=== PATIENT | male | born 1940 | race Caucasian/White ===

== ENCOUNTER 2019-03-22 08:37 | Day surgery (SDC) | payer MEDICARE ==
[~2019-03-22] VITALS: Ht 185.4 cm; Wt 27.1 kg
[~2019-03-22 08:37] MED LIST: AMLO5 PO; ASPI81EC PO; ATEN100 PO; ATEN50 PO; HYDCHL25 PO; LISI20 PO; LOVA40 PO
[2019-03-22] MEDS ORDERED: Toprol Xl50 MG PO (09:14)
[2019-03-22] MEDS ORDERED: ZESTRIL40 MG PO (09:16)
--- NOTE | 2019-03-22 13:32 | NUR ---
03/22/19 1332 Enedina Urrutia AT 1240 REPORT [email or web address]
== END 2019-03-22 13:45 | disposition home or self-care (01) ==
LOC: ORSCSDS 08:37
PROVIDERS: Orthopaedic Surgery
PROC: 0RQS0ZZ Repair Right Carpometacarpal Joint, Open Approach (ICD-10-PCS; principal; 2019-03-22 10:15)
PROC: 0LX50ZZ Transfer Right Lower Arm and Wrist Tendon, Open Approach (ICD-10-PCS; principal; 2019-03-22 10:15)
DX: M18.11 Unilateral primary osteoarthritis of first carpometacarpal joint, right hand (principal); I10 Essential (primary) hypertension; Z79.899 Other long term (current) drug therapy
CPT/HCPCS: J0461; J0690; J1100; J2405; J2704; J3010

== ENCOUNTER 2020-12-05 08:26 | Emergency (ER) | payer MEDICARE ==
[~2020-12-05] VITALS: Ht 185.4 cm; Wt 93.0 kg
[~2020-12-05 08:26] MED LIST changes: +Toprol Xl50 MG PO; +ZESTRIL40 MG PO
[2020-12-05] MEDS ORDERED: MULTI-VITAMIN1 EAC2 PO (08:42)
[2020-12-05] MEDS ORDERED: OYSTER SHELL 51 EACH PO (08:43)
== END 2020-12-05 11:53 | disposition home or self-care (01) ==
LOC: ER 08:26
DX: H53.2 Diplopia (principal); E78.5 Hyperlipidemia, unspecified; I10 Essential (primary) hypertension; Z79.899 Other long term (current) drug therapy
CPT/HCPCS: 70450; 99284-25

== ENCOUNTER → 2021-09-18 | Outpatient (CLI) | payer MEDICARE ==
[~2021-09-18] MED LIST changes: +MULTI-VITAMIN1 EAC2 PO; +OYSTER SHELL 51 EACH PO
== END | disposition home or self-care (01) ==
LOC: LAB 11:31 → LAB SHORT 11:31
DX: R73.03 Prediabetes (principal)
CPT/HCPCS: 36415; 83036

== ENCOUNTER 2023-06-16 09:32 | Day surgery (SDC) | payer MEDICARE ==
[~2023-06-16] VITALS: Ht 185.4 cm; Wt 93.0 kg
[2023-06-16] VITALS (24 sets, daily range): BP systolic 118–158; BP diastolic 69–97
[~2023-06-16 09:32] MED LIST changes: +LOSA50 PO
--- NOTE | 2023-06-16 11:51 | NUR ---
06/16/23 1151 Allie Momin HISTORY, CHART, MEDICATIONS AND ALLERGIES REVIEWED BEFORE START OF PROCEDURE. PATIENT CONFIRMS NPO STATUS AND AGREES WITH SCHEDULED PROCEDURE. 3-LEAD EKG REVIEWED WITH PHYSICIAN PRIOR TO START OF PROCEDURE. MONITOR INTACT WITH CONTINUOUS PULSE OXIMETRY,CAPNOGRAPHY, 3-LEAD EKG, INTERMITTENT BP. SUPPLEMENTAL O2 TO BE TITRATED THROUGHOUT PROCEDURE TO MAINTAIN O2 SATURATION ABOVE 90%. PATIENT DETERMINED TO BE ASA APPROPRIATE FOR PROPOFOL SEDATION PRIOR TO START OF PROCEDURE BY DR. RAMIREZ. MALLAMPATI CLASS 3 AIRWAY: VISUALIZATION OF ONLY THE BASE OF THE UVULA.
--- NOTE | 2023-06-16 13:21 | NUR ---
Patient up to Ambulate independently. Gait steady. Discharge instructions reviewed with patient. Patient verbalizes understanding. Copy given to patient to take home, WELL . Patient States Post-Procedure ride home has been arranged. Discharged via wheelchair to private car for ride home.
== END 2023-06-16 13:21 | disposition home or self-care (01) ==
LOC: ORSCMMR 09:32 → ORD 10:30 → ORSCMMR 13:21
PROVIDERS: Internal Medicine Gastroenterology
PROC: 0DBM8ZX Excision of Descending Colon, Via Natural or Artificial Opening Endoscopic, Diagnostic (ICD-10-PCS; principal; 2023-06-16 10:30)
PROC: 0DBP8ZX Excision of Rectum, Via Natural or Artificial Opening Endoscopic, Diagnostic (ICD-10-PCS; principal; 2023-06-16 10:30)
PROC: 0DBL8ZX Excision of Transverse Colon, Via Natural or Artificial Opening Endoscopic, Diagnostic (ICD-10-PCS; principal; 2023-06-16 10:30)
PROC: 0DBN8ZX Excision of Sigmoid Colon, Via Natural or Artificial Opening Endoscopic, Diagnostic (ICD-10-PCS; principal; 2023-06-16 10:30)
DX: Z12.11 Encounter for screening for malignant neoplasm of colon (principal); Z86.010 Personal history of colon polyps; D12.3 Benign neoplasm of transverse colon; D12.4 Benign neoplasm of descending colon; D12.5 Benign neoplasm of sigmoid colon; K63.5 Polyp of colon; Z85.038 Personal history of other malignant neoplasm of large intestine; Z85.46 Personal history of malignant neoplasm of prostate; I10 Essential (primary) hypertension; E78.00 Pure hypercholesterolemia, unspecified; G51.0 Bell's palsy; Z79.899 Other long term (current) drug therapy
CPT/HCPCS: 88305; J2704; J7120

== ENCOUNTER 2024-02-24 09:11 | Day surgery (SDC) | payer MEDICARE ==
[~2024-02-24] VITALS: Ht 185.4 cm; Wt 96.7 kg
[~2024-02-24 09:11] MED LIST changes: +Balanced Salt Epinephrine Irrigation Solution 500 mL IR SCH; +Lidocaine HCl/Pf 1% 5 ML VIAL XX SCH; +Moxifloxacin HCL 0.5 MG/0.1 ML 0.4MLSYR RIGHTEYE SCH; +NS 500 ML IV ONE; +PHENYLEPHRINE\\TROPICAMIDE\\TETRACAINE OPHTHALMIC DILATING SOLN RIGHTEYE PRN; +Povidone-Iodine 450 DROP/30 ML Solution RIGHTEYE SCH
[2024-02-24] MEDS ORDERED: Aspir 8181 MG (09:24)
[2024-02-24] MEDS ORDERED: NS 1,000 ML IV ONE (09:27)
[2024-02-24] MEDS ORDERED: FentaNYL Citrate 50 MCG/ML 2 ML Injection ONE (09:43)
[2024-02-24] MEDS ORDERED: Tetracaine HCl 0.5% Opth Soln 15 ml RIGHTEYE ONE (10:10)
[2024-02-24 10:36] VITALS: BP 169/92
== END 2024-02-24 10:49 | disposition home or self-care (01) ==
LOC: ORSCSDS 09:11
PROVIDERS: Student in an Organized Health Care Education/Training Program
PROC: 08RJ3JZ Replacement of Right Lens with Synthetic Substitute, Percutaneous Approach (ICD-10-PCS; principal; 2024-02-24 10:30)
DX: H25.813 Combined forms of age-related cataract, bilateral (principal); I10 Essential (primary) hypertension; Z79.82 Long term (current) use of aspirin; Z79.899 Other long term (current) drug therapy
CPT/HCPCS: J3010; J7040; V2632

== ENCOUNTER 2024-03-02 13:09 | Day surgery (SDC) | payer MEDICARE ==
[~2024-03-02] VITALS: Ht 185.4 cm; Wt 96.3 kg
[~2024-03-02 13:09] MED LIST changes: +Aspir 8181 MG; +Moxifloxacin HCL 0.5 MG/0.1 ML 0.4MLSYR LEFTEYE SCH; -Moxifloxacin HCL 0.5 MG/0.1 ML 0.4MLSYR RIGHTEYE SCH; +PHENYLEPHRINE\\TROPICAMIDE\\TETRACAINE OPHTHALMIC DILATING SOLN LEFTEYE PRN; -PHENYLEPHRINE\\TROPICAMIDE\\TETRACAINE OPHTHALMIC DILATING SOLN RIGHTEYE PRN; +Povidone-Iodine 450 DROP/30 ML Solution LEFTEYE SCH; -Povidone-Iodine 450 DROP/30 ML Solution RIGHTEYE SCH
[2024-03-02] MEDS ORDERED: Midazolam HCl 1MG / ML 2ML Vial ONE (13:43)
[2024-03-02] MEDS ORDERED: NS 500 ML IV ONE (13:43)
[2024-03-02] MEDS ORDERED: FentaNYL Citrate 50 MCG/ML 2 ML Injection ONE (13:43)
[2024-03-02] MEDS ORDERED: Tetracaine HCl 0.5% Opth Soln 15 ml LEFTEYE ONE (13:48)
[2024-03-02] MEDS ORDERED: Erythromycin 0.5% Opth Oint 1 gm ONE (14:10)
[2024-03-02 14:21] VITALS: BP 146/93
== END 2024-03-02 14:41 | disposition home or self-care (01) ==
LOC: ORSCSDS 13:09
PROVIDERS: Student in an Organized Health Care Education/Training Program
PROC: 08BRXZX Excision of Left Lower Eyelid, External Approach, Diagnostic (ICD-10-PCS; principal; 2024-03-02 14:30)
PROC: 08RK3JZ Replacement of Left Lens with Synthetic Substitute, Percutaneous Approach (ICD-10-PCS; principal; 2024-03-02 14:30)
DX: H25.812 Combined forms of age-related cataract, left eye (principal); Z96.1 Presence of intraocular lens; L82.1 Other seborrheic keratosis; Z79.899 Other long term (current) drug therapy; Z79.82 Long term (current) use of aspirin
CPT/HCPCS: 88305; A9270; J2250; J3010; J7040; V2632

== ENCOUNTER 2024-03-31 09:52 | Emergency (ER) | payer MEDICARE ==
[~2024-03-31] VITALS: Ht 185.4 cm; Wt 95.2 kg
[~2024-03-31 09:52] MED LIST changes: -Aspir 8181 MG; +Aspir 8181 MG PO; -Balanced Salt Epinephrine Irrigation Solution 500 mL IR SCH; -Lidocaine HCl/Pf 1% 5 ML VIAL XX SCH; -Moxifloxacin HCL 0.5 MG/0.1 ML 0.4MLSYR LEFTEYE SCH; -NS 500 ML IV ONE; -PHENYLEPHRINE\\TROPICAMIDE\\TETRACAINE OPHTHALMIC DILATING SOLN LEFTEYE PRN; -Povidone-Iodine 450 DROP/30 ML Solution LEFTEYE SCH
[2024-03-31 10:09] VITALS: BP 154/62
[2024-03-31 10:25] LABS: Hematocrit 50.7 % (37.0-53.0); Hemoglobin 16.9 g/dL (13.5-17.5); Mean Corpuscular HGB 31.6 pg (26.0-34.0); Mean Corpuscular HGB Conc 33.3 g/dL (31.5-36.5); Mean Corpuscular Volume 95 fL (80-100); Mean Platelet Volume 11.5 fL (9.1-12.4); Platelet Count 154 K/mm3 (150-400); RDW Coefficient Variation 12.3 % (11.7-14.2); RDW Standard Deviation 42.5 fL (35.1-46.3); Red Blood Cell Count 5.35 M/mm3 (4.30-5.90); White Blood Cell Count 13.01 K/mm3 (4.00-11.30)
[2024-03-31 10:43] LABS: Albumin, Blood 3.9 g/dL (3.4-5.0); Bilirubin, Total 0.8 mg/dL (0.1-1.0); Bun/Creatinine Ratio 13.2 (12.0-20.0); Calcium, Blood 8.9 mg/dL (8.5-10.1); Creatinine, Blood 0.91 mg/dL (0.60-1.20); Globulin, Blood 3.8 g/dL (2.2-4.0); Total Protein, Blood 7.7 g/dL (6.4-8.2)
[2024-03-31 11:08] LABS: BASOPHILS PERCENT MAN 0 % (0-2); EOSINOPHILS ABSOLUTE MAN 0.65 K/mm3 (0.00-0.68); EOSINOPHILS PERCENT MAN 5 % (0-6); LYMPHOCYTES ABSOLUTE MAN 6.37 K/mm3 (0.84-5.20); LYMPHOCYTES PERCENT MAN 49 % (21-46); MONOCYTES ABSOLUTE MAN 0.65 K/mm3 (0.16-1.47); MONOCYTES PERCENT MAN 5 % (4-13); NEUTROPHILS ABSOLUTE MAN 5.33 K/mm3 (1.96-9.15); SEG NEUTROPHILS PERCENT MAN 41 % (41-73); TOTAL CELLS COUNTED 100
[2024-04-01] MEDS ORDERED: LOVA40 PO (08:44)
== END 2024-03-31 12:25 | disposition home or self-care (01) ==
LOC: ER 09:52
PROVIDERS: Emergency Medicine
DX: R55 Syncope and collapse (principal); I10 Essential (primary) hypertension; E78.5 Hyperlipidemia, unspecified; Z79.82 Long term (current) use of aspirin; Z79.899 Other long term (current) drug therapy
CPT/HCPCS: 80053; 84484; 85025; 93005; 93010; 93242; 99284-25

== ENCOUNTER 2024-03-31 12:56 | Inpatient (IN) | payer MEDICARE ==
[~2024-03-31] VITALS: Ht 188 cm; Wt 115.7 kg
[2024-03-31] MEDS ORDERED: Ondansetron 4 MG TAB PO PRN (14:45)
[2024-03-31 17:38] VITALS: BP 158/90
[2024-03-31 19:59] VITALS: BP 156/77
--- NOTE | 2024-03-31 20:11 | NUR ---
PT ADMITTED TO ROOM 326 AT 1730, WHEELCHAIR, AMBULATES STEADY ON FEET, DENIES ANY DIZZINESS. SET UP ON TELE, SB 62, NO ECTOPY. PT DENIES ANY DIZZINESS SINCE ADMIT. VSS WILL TANNA
--- NOTE | 2024-03-31 20:16 | NUR ---
SUMMARY- PT A/O X4. HAS DENIED ANY DIZZINESS SINCE ADMIT TO HOSPITAL. TELE SB 62. 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 PT DENIED ANY SYMPTOMS. DR BELLA HERE TO KATTY PT AROUND 1900 AND MADE AWARE OF THIS RUN AND GIVEN THE PRINT OUT. PT TOLERATING FOOD AND FLUIDS. INSTRUCTED TO CALL FOR HELP GETTING UP FOR AMBUTATION OR IF EXPERIENCING DIZZINESS. REPORTED TO GANGA RIVAS RN
[2024-03-31] MEDS ORDERED: HydrALAZINE HCl 20 MG / ML 1ML Vial IV PRN (20:25)
[2024-03-31 23:48] VITALS: BP 138/83
[2024-04-01 02:48] VITALS: BP 141/76
[2024-04-01 05:03] LABS: BASOPHILS ABSOLUTE AUTO 0.03 K/mm3 (0.00-0.23); BASOPHILS PERCENT AUTO 0 % (0-2); EOSINOPHILS ABSOLUTE AUTO 0.37 K/mm3 (0.00-0.68); EOSINOPHILS PERCENT AUTO 3 % (0-6); Hematocrit 43.8 % (37.0-53.0); Hemoglobin 14.8 g/dL (13.5-17.5); Mean Corpuscular HGB 31.6 pg (26.0-34.0); Mean Corpuscular HGB Conc 33.8 g/dL (31.5-36.5); Mean Corpuscular Volume 93 fL (80-100); Mean Platelet Volume 11.6 fL (9.1-12.4); Platelet Count 134 K/mm3 (150-400); RDW Coefficient Variation 12.1 % (11.7-14.2); RDW Standard Deviation 41.5 fL (35.1-46.3); Red Blood Cell Count 4.69 M/mm3 (4.30-5.90); White Blood Cell Count 11.32 K/mm3 (4.00-11.30)
[2024-04-01 05:18] LABS: IMMATURE GRAN ABSOLUTE AUTO 0.04 K/mm3 (0.00-0.10); IMMATURE GRAN PERCENT AUTO 0 % (0-1); LYMPHOCYTES PERCENT AUTO 35 % (21-46); MONOCYTES ABSOLUTE AUTO 0.94 K/mm3 (0.16-1.47); MONOCYTES PERCENT AUTO 8 % (4-13); NEUTROPHILS ABSOLUTE AUTO 5.94 K/mm3 (1.96-9.15); NEUTROPHILS PERCENT AUTO 52 % (41-73)
[2024-04-01 05:56] LABS: Albumin, Blood 3.4 g/dL (3.4-5.0); Albumin/Globulin Ratio 1.1 (0.8-1.8); Bilirubin, Total 0.8 mg/dL (0.1-1.0); Bun/Creatinine Ratio 14.6 (12.0-20.0); Calcium, Blood 8.6 mg/dL (8.5-10.1); Creatinine, Blood 0.82 mg/dL (0.60-1.20); Magnesium, Blood 2.3 mg/dL (1.6-2.4); Potassium, Blood 3.4 mmol/L (3.5-5.5); Total Protein, Blood 6.4 g/dL (6.4-8.2)
[2024-04-01 07:29] VITALS: BP 142/82
--- NOTE | 2024-04-01 07:54 | NUR ---
SHIFT SUMMARY: PATIENT HAS NO REPORTS OF PAIN OR DISCOMFORT. VOIDING IN THE URINAL. VSS, TELEMTRY CALLED TO REPORT PATIENT SLIPPED INTO A SECOND DEGREE HEART BLOCK THAT SUSTAINED FOR 15 SECONDS. PATIENT WAS ASYMPTOMATIC DURING EPISODE. DR RICHARDS WAS MADE AWARE.
[2024-04-01] MEDS ORDERED: LOVA40 PO (08:44)
[2024-04-01] MEDS ORDERED: Enoxaparin 40 MG/0.4 ML SYR SC SCH (09:00)
[2024-04-01] MEDS ORDERED: AmLODIPine Besylate 5 MG Tab PO SCH (09:00)
[2024-04-01] MEDS ORDERED: Aspirin 81 MG Chew PO SCH (11:37)
[2024-04-01 15:24] VITALS: BP 116/86
--- NOTE | 2024-04-01 17:28 | NUR ---
SUMMARY- PT A/O X4, USES CALL LIGHT TO MAKE NEEDS KNOWN. TELE SR MAJORITY OF THE TIME OCC PAC. THIS AM AM HAVING FREQ REPORTS OF SECOND DEG/TYPE 2 REPORTED, PT DENIES SYMPTOMS. STATES ONCE HE THOUGHT A SPELL MIGHT BE COMING BUT NEVER SYNCOPAL EPISODE. LAST 2ND DEG RECORDED AROUND 0900 THIS AM. PT HAD NO DIZZI SPELLS AT ALL TODAY. AMBULATES IN LOCKETT WITH MADHAVI FITZPATRICK STEADY ON FEET. TOLERATING FOOOD AND FLUID. PLAN FOR PT TO DC TOMORROW ON ZIO PATCH 30 DAYS- HOPEFUL BRADYCARDIA/HEART BLOCKS SUBSIDE. WILL REPORT ALL TO NOC RN
[2024-04-01 19:51] VITALS: BP 139/92
[2024-04-01] MEDS ORDERED: Losartan Potassium 50 MG Tab PO SCH (21:00)
[2024-04-01] MEDS ORDERED: Atorvastatin 10 MG Tab PO SCH (21:00)
[2024-04-02 04:59] VITALS: BP 145/85
[2024-04-02 05:18] LABS: BASOPHILS ABSOLUTE AUTO 0.04 K/mm3 (0.00-0.23); BASOPHILS PERCENT AUTO 0 % (0-2); EOSINOPHILS ABSOLUTE AUTO 0.31 K/mm3 (0.00-0.68); EOSINOPHILS PERCENT AUTO 3 % (0-6); Hematocrit 44.8 % (37.0-53.0); Hemoglobin 15.5 g/dL (13.5-17.5); IMMATURE GRAN ABSOLUTE AUTO 0.04 K/mm3 (0.00-0.10); IMMATURE GRAN PERCENT AUTO 0 % (0-1); LYMPHOCYTES ABSOLUTE AUTO 4.35 K/mm3 (0.84-5.20); LYMPHOCYTES PERCENT AUTO 37 % (21-46); MONOCYTES ABSOLUTE AUTO 0.93 K/mm3 (0.16-1.47); MONOCYTES PERCENT AUTO 8 % (4-13); Mean Corpuscular HGB 32.2 pg (26.0-34.0); Mean Corpuscular HGB Conc 34.6 g/dL (31.5-36.5); Mean Corpuscular Volume 93 fL (80-100); Mean Platelet Volume 11.5 fL (9.1-12.4); NEUTROPHILS ABSOLUTE AUTO 6.12 K/mm3 (1.96-9.15); NEUTROPHILS PERCENT AUTO 52 % (41-73); Platelet Count 142 K/mm3 (150-400); RDW Standard Deviation 41.5 fL (35.1-46.3); Red Blood Cell Count 4.82 M/mm3 (4.30-5.90); White Blood Cell Count 11.79 K/mm3 (4.00-11.30)
--- NOTE | 2024-04-02 05:37 | NUR ---
SHIFT SUMMARY: PATIENT IS A&OX4, VSS, AMBULATED IN THE LOCKETT WITH NO REPORTS OF CHEST PAIN OR EVENTS ON TELEMETRY. PATIENT IS LOOKING FORWARD TO BEING DISCHARGED THIS AM.
[2024-04-02 05:52] LABS: Bun/Creatinine Ratio 19.4 (12.0-20.0); Calcium, Blood 8.4 mg/dL (8.5-10.1); Creatinine, Blood 0.88 mg/dL (0.60-1.20); Potassium, Blood 3.6 mmol/L (3.5-5.5)
[2024-04-02 07:34] VITALS: BP 117/73
[2024-04-02] MEDS ORDERED: Aspirin 81 MG TabEC PO SCH (09:00)
[2024-04-02] MEDS ORDERED: Aspirin 81 MG Chew PO SCH (09:00)
--- NOTE | 2024-04-02 12:53 | NUR ---
when checking on patient and bringing in lunch tray, patient asked the nut packer to wash out his urinal. POPCORN MACHINE OPERATOR said sure then checked white board. he is standby to indep so nut packer said "do you want to use the restroom instead, get up and move around?" Patient said, NO, YOU CLEAN THIS UP, NO WOMANS GOING IN THE BATHROOM WITH ME." I said sure, no problem, I was just suggesting getting out of bed to feel better. He said, "NO WAY, JUST CLEAN THIS WHEN I USE IT AND ILL STAY RIGHT HERE IN THE BED I LIKE." R.N. was behind curtain at entrance so heard the conversation. (Not an issue, just wanted to document.)
--- NOTE | 2024-04-02 16:25 | NUR ---
PT HAS NO SIGNS OF DISTRESS, PRINTING GREY CLOTH TENDER NSR 70 DURNING MORNING SHIFT. PATIENT DENIED SHORTNESS OF BREATH, CHEST PAIN, WEAKNESS OR DIZZINESS. PATIENT BLOOD PRESSURE WITHIN NOMRAL RANGES, VSS. HEART RATE MONITORED BY TELEMETY MONITOR AND WAS WITHIN NORMAL RANGES IN THE 70'S THROUGHOUT THE MORNING. HE UNDERSTANDS DISCHARGE INSTRUCTIONS TO CALL PRIMARY CARE PHYSICIAN TO VERIFY APPOINMENT. EXPLAINED ZIO PATCH AND IF HE HAS ANY SIGNS OF DIZZINESS, OR SYNCOPY EPISODES TO COME TO THE EMERGENCY DEPARTMENT. INSTRUCTED PATIENT TO CALL 911 IF HE HAS ANY CHEST PAIN OR EXPEREINCES ANY SIGNS OR SYMPTOMS DIZZINESS, SHORTNESS OF BREATH, SYNCOPY EPISODES, CHEST PAIN. I ADVISED THAT ZIO MONITOR WILL NOT CALL 911 THAT HIS FAMILY NEEDS TO. ADVISED PATIENT TO CHECK BLOOD PRESSURE BEFORE TAKING ANY BLOOD PRESSURE MEDICATIONS. ADVISED PATIENT TO FOLLOW-UP WITH HEAD CHAR FILTER TANK TENDER.
== END 2024-04-02 14:15 | disposition home or self-care (01) | DRG 309 ==
LOC: ER 12:56 → MEDS 14:44
PROVIDERS: Internal Medicine; ADMIT Internal Medicine
DX: I44.1 Atrioventricular block, second degree (principal); C91.11 Chronic lymphocytic leukemia of B-cell type in remission; D69.6 Thrombocytopenia, unspecified; E87.6 Hypokalemia; I67.1 Cerebral aneurysm, nonruptured; Z98.49 Cataract extraction status, unspecified eye; Z98.890 Other specified postprocedural states; Z90.79 Acquired absence of other genital organ(s); Z90.89 Acquired absence of other organs; Z79.82 Long term (current) use of aspirin; Z79.899 Other long term (current) drug therapy; Z85.46 Personal history of malignant neoplasm of prostate; Z85.038 Personal history of other malignant neoplasm of large intestine
CPT/HCPCS: 36415; 80048; 80053; 83735; 84484; 85025; 93005; 93010; 93242; 99284; 99284-25; A9270; J1650

== ENCOUNTER 2024-05-31 08:06 | Day surgery (SDC) | payer MEDICARE ==
[~2024-05-31] VITALS: Ht 185.4 cm; Wt 97.0 kg
[2024-05-31 08:32] VITALS: BP 150/87
[2024-05-31] MEDS ORDERED: CeFAZolin Sodium 1000 mg Vial ONE (08:36)
[2024-05-31] MEDS ORDERED: NS 1,000 ML IV ONE ×2 (08:36→09:13)
[2024-05-31] MEDS ORDERED: Heparin Sodium 1000 Units/ML 10ML MDV ONE (08:36)
[2024-05-31] MEDS ORDERED: Midazolam HCl 1MG / ML 2ML Vial ONE (09:13)
[2024-05-31] MEDS ORDERED: FentaNYL Citrate 50 MCG/ML 2 ML Injection ONE (09:13)
[2024-05-31] MEDS ORDERED: CeFAZolin Sodium 2,000 MG VIAL ONE (09:17)
[2024-05-31] MEDS ORDERED: NS 100 ML IV ONE (09:18)
[2024-05-31 11:20] VITALS: BP 147/89
--- NOTE | 2024-05-31 11:20 | NUR ---
PATIENT ARRIVED BACK TO RECOVERY ROOM IN RECLINER, CONVERSING APPROPRIATELY. L CHEST PACEMAKER IN PLACE. SITE C/D/I. ICE PACK IN PLACE. VSS ON RA
[2024-05-31 11:30] VITALS: BP 134/77
[2024-05-31 11:45] VITALS: BP 139/99
--- NOTE | 2024-05-31 11:59 | NUR ---
PATIENT SITTING COMFORTABLY IN RECLINER TOLERATING PO INTAKE WELL. VSS ON RA
[2024-05-31 12:00] VITALS: BP 156/101
[2024-05-31 12:45] VITALS: BP 148/88
--- NOTE | 2024-05-31 13:00 | NUR ---
PATIENT DISCHARGED HOME AT THIS TIME. WOUND CARE AND PACEMAKER APPOINTMENT CREATED. DISCHARGE INSTRUCTIONS REVIEWED WITH PATIENT. ALL QUESTIONS WERE ANSWERED. PACEMAKER SITE C/D/I, NO EVIDENCE OF BLEEDING. ICE PACK IN PLACE. PATIENT WHEELED TO HOPSITAL ENTRANCE AND FRIEND ABLE TO PROVIDE TRANSPORTATION HOME. VSS ON RA. PIV REMOVED WITHOUT DIFFFICULTY, CATHETER INTACT.
== END 2024-05-31 13:00 | disposition home or self-care (01) ==
LOC: MHTC 08:06
DX: I45.5 Other specified heart block (principal); I44.2 Atrioventricular block, complete; R55 Syncope and collapse; I10 Essential (primary) hypertension; I73.00 Raynaud's syndrome without gangrene; E11.9 Type 2 diabetes mellitus without complications; Z79.899 Other long term (current) drug therapy
CPT/HCPCS: 33208; 71046; 99152; 99153; C1785; C1894; C1898; J0690; J1644; J2250; J3010; J7030; J7040; Q9967

== ENCOUNTER → 2025-03-28 | Outpatient (CLI) | payer MEDICARE ==
[2025-03-28 20:05] LABS: Creatinine, Urine Random 238.0 mg/dL (27.00-270.00); Microalb/Creat Ratio UR, Rand 9.118 mg/g (0.000-30.000); Microalbumin, Random Urine 21.7 mg/L (0.000-20.000)
== END ==
LOC: LAB 16:59 → LAB SHORT 16:59
PROVIDERS: Internal Medicine
DX: E11.69 Type 2 diabetes mellitus with other specified complication (principal); E78.2 Mixed hyperlipidemia; I70.90 Unspecified atherosclerosis
CPT/HCPCS: 82043; 82570